=== PATIENT | female | born 1940 | race Caucasian/White ===

== ENCOUNTER → 2016-06-15 | Outpatient (CLI) | payer OTHER, BC ==
[~2016-06-15] MED LIST: ALBUTEROL2.5 MG/31 INH; ALLEGRA ALLERG180 MG PO; ALLEGRA180 MG PO; ARICEPT 5 MG TAB5 MG PO; ATIVAN0.5 MG PO; AUGMENTIN 875875 MG PO; AZITHROMYCIN 2250 MG PO; BACTRIM DS TAB1 EACH PO; CEFDINIR PO; CLONAZEPAM PO; COLACE 100 MG100 MG PO; DARVOCET-N 1001 EAC1 PO; DOXYCYCLINE 10100 MG PO; ESCITALOPRAM OX20 MG PO; FLONASE 0.05%50 MCG NASAL; FLONASE NS; HYDROCODON-ACE1 EAC7 PO; HYDROCODON-ACE1 EACH; KLOR-CON M2020 MEQ PO; LEXAPRO 10 MG T10 M1 PO; MEDROLDOSEPACK PO; MIRALAX17 GM PO; MUCINEX TA600 MG/TA2 PO; PREDNISONE 10 M10 M1 PO; PREDNISONE 20 M20 MG PO; PREDNISONE 5 MG5 MG PO; PROAIR HFA8.5 GM IH; PROAIR HFA8.5 GM INH; PROZAC 10 MG CA10 MG PO; PROZAC 20 MG20 M1 PO; PROZAC10 MG PO; QVAR8.7 G1 IH; QVAR8.7 G1 INH; SENNA PO; SINGULAIR 10 MG10 M1 PO; SINGULAIR 10 MG10 MG PO; SYMBICORT160 MCG/4. INH; VENTOLIN HFA 1818 GM INH; VERAMYST10 GM NASAL; VERAMYST10 GM NS; VITAMIN D-32000 UNIT PO; VITAMIN D1000 UNI1 PO; ZOFRAN ODT4 MG PO; [UNRECOGNIZED DRUG - OTHER] PO
== END ==
LOC: RAD 15:26
DX: J45.909 Unspecified asthma, uncomplicated (principal); R06.02 Shortness of breath

== ENCOUNTER 2016-07-07 21:16 | Emergency (ER) | payer OTHER, BC ==
[~2016-07-07] VITALS: Ht 160 cm; Wt 70.3 kg
--- NOTE | ~2016-07-07 | EKG ---
[address] [address] ELECTROCARDIOGRAM REPORT Name: FERNANDO CURRY Room #: DEP [facility] HAYWARDTrae#: [id number] Admission: 07/07/16 Attend Phys: Discharge: 07/08/16 Date of : 40 Report #: [id number] THIS REPORT FOR: //name// [facility] ED Test Date: 2016-07-07 Test Time: 23:28:22 Pat Name: FERNANDO CURRY Department: Room: Gender: F Technical Sales Specialist: ELVIN : 1940 Requested By: Christa Obrien Order Number: [id number] MD: Yunior Richey Measurements Intervals [place] Rate: 70 P: 32 MN: 155 QRS: -17 QRSD: 93 T: 26 QT: 408 QTc: 441 Interpretive Statements Sinus rhythm Borderline left axis deviation Compared to ECG 06/15/2016 23:29:27 No significant changes Electronically Signed On 07-08-2016 22:32:26 CDT by Yunior Richey [email or web address] <ELECTRONICALLY SIGNED> By: Yunior Richey MD 07/08/162231 27 27 Yunior Richey MD /[facility]
--- NOTE | ~2016-07-07 | EKG ---
[address] [address] ELECTROCARDIOGRAM REPORT Name: FERNANDO CURRY [facility] [id number] Admission: 07/07/16 Attend Phys: Discharge: 07/08/16 Date of : 40 Report #: [id number] THIS REPORT FOR: //name// [facility] ED Test Date: 2016-07-07 Test Time: 21:25:11 Pat Name: FERNANDO CURRY Department: Room: Gender: F Public Health Engineer: lucas mendes : 1940 Requested By: Christa Obrien Order Number: [id number] MD: Yunior Richey Measurements Intervals [place] Rate: 75 P: 48 MS: 145 QRS: -29 QRSD: 92 T: 44 QT: 412 QTc: 461 Interpretive Statements Sinus rhythm Borderline left axis deviation Abnormal R-wave progression, late transition Baseline wander in lead(s) V5 Compared to ECG 06/15/2016 23:29:27 No significant changes Electronically Signed On 07-08-2016 22:29:26 CDT by Yunior Richey [email or web address] <ELECTRONICALLY SIGNED> By: Yunior Richey MD 07/08/16 2229 24 24 Yunior Richey MD /EPI
[2016-07-07] MEDS ORDERED: FLONASE 0.05%50 MCG NASAL (21:34)
[2016-07-07] MEDS ORDERED: VITAMIN D31000 UNI2 PO (21:34)
[2016-07-07] MEDS ORDERED: LIPITOR10 MG PO (21:34)
[2016-07-07 21:36] LABS: ABSOLUTE NEUTROPHILS 3.9 thou/uL (1.4-8.2); EOSINOPHILS 9.5 % (0.0-3.0); HEMATOCRIT 38.3 % (37.0-47.0); HEMOGLOBIN 13.2 gm/dL (12.0-15.0); LYMPHOCYTES 20.2 % (24.0-44.0); MCH 31.5 pg (26.0-34.0); MCHC 34.4 g/dL (28.0-37.0); MCV 91.8 fL (80.0-100.0); MONOCYTES 9.5 % (1.0-8.0); PLATELET COUNT 202 thou/uL (150-400); POLYS 59.8 % (36.0-66.0); RBC 4.17 mil/uL (4.20-5.00); RDW 13.9 % (10.5-14.5); WBC 6.6 thou/uL (4.0-11.0)
[2016-07-07] MEDS ORDERED: [UNRECOGNIZED DRUG - OTHER] INH (21:36)
[2016-07-07 21:38] LABS: MANUAL DIFF NO
[2016-07-07 21:45] LABS: ANION GAP 7 mmol/L (7-16); BUN 25 mg/dL (7-18); CALCIUM 9.6 mg/dL (8.5-10.1); CHLORIDE 103 mmol/L (98-107); CO2 29 mmol/L (21-32); GLUCOSE 102 mg/dL (74-106); POTASSIUM 4.1 mmol/L (3.5-5.1); SODIUM 139 mmol/L (136-145)
[2016-07-07 21:53] LABS: TROPONIN-I < 0.04 ng/mL (<0.04-0.07)
[2016-07-08 00:34] VITALS: BP 122/56
== END 2016-07-08 00:40 | disposition home or self-care (01) ==
LOC: ER 21:16
PROVIDERS: Emergency Medicine
DX: R07.89 Other chest pain (principal); F41.9 Anxiety disorder, unspecified; Z90.89 Acquired absence of other organs; Z90.49 Acquired absence of other specified parts of digestive tract; Z85.3 Personal history of malignant neoplasm of breast; Z88.6 Allergy status to analgesic agent; Z88.1 Allergy status to other antibiotic agents; Z88.8 Allergy status to other drugs, medicaments and biological substances; Z91.041 Radiographic dye allergy status

== ENCOUNTER 2016-07-31 20:20 | Inpatient (IN) | payer OTHER, BC ==
[~2016-07-31] VITALS: Ht 160 cm; Wt 69.4 kg
--- NOTE | ~2016-07-31 | EKG ---
[place] [address] Patient Conversation [facility] [place] [address] ELECTROCARDIOGRAM REPORT Name: FERNANDO CURRY MONO Room #: 311-P ADM IN M.R.#: [id number] Admission: 07/31/16 Attend Phys: Alicja Benitez Discharge: Date of : 40 Report #: [id number] THIS REPORT FOR: //name// [facility] ED Test Date: 2016-07-31 Test Time: 20:29:27 Pat Name: FERNANDO CURRY Department: Room: 311 Gender: F Electrical Controls Engineer: JENNIFER : 1940 Requested By: Christa Obrien Order Number: [id number] MD: Napoleon Aguirre Measurements Intervals [place] Rate: 59 P: 43 SC: 151 QRS: -11 QRSD: 92 T: 38 QT: 424 QTc: 420 Interpretive Statements Sinus rhythm Low voltage, precordial leads Compared to ECG 07/07/2016 23:28:22 No significant change was found Electronically Signed On 08-01-2016 7:56:03 CDT by Napoleon Aguirre [email or web address] <ELECTRONICALLY SIGNED> By: Napoleon Aguirre MD, [facility] 08/01/16 0756 28 28 Napoleon Aguirre MD, [facility] /EPI
[~2016-07-31 20:20] MED LIST changes: +LIPITOR10 MG PO; +VITAMIN D31000 UNI2 PO; +[UNRECOGNIZED DRUG - OTHER] INH
[2016-07-31 20:25] VITALS: BP 137/62
[2016-07-31] MEDS ORDERED: VENTOLIN HFA 1818 GM INH (20:58)
[2016-07-31 21:51] LABS: ABSOLUTE NEUTROPHILS 4.8 thou/uL (1.4-8.2); BASOPHILS 0.7 % (0.0-2.0); EOSINOPHILS 12.9 % (0.0-3.0); HEMATOCRIT 35.8 % (37.0-47.0); HEMOGLOBIN 12.2 gm/dL (12.0-15.0); MCH 31.6 pg (26.0-34.0); MCHC 34.2 g/dL (28.0-37.0); MCV 92.4 fL (80.0-100.0); MONOCYTES 8.5 % (1.0-8.0); PLATELET COUNT 181 thou/uL (150-400); POLYS 65.9 % (36.0-66.0); RBC 3.87 mil/uL (4.20-5.00); RDW 13.5 % (10.5-14.5); WBC 7.3 thou/uL (4.0-11.0)
[2016-07-31 21:54] LABS: MANUAL DIFF NO
[2016-07-31 22:04] LABS: ANION GAP 8 mmol/L (7-16); BUN 22 mg/dL (7-18); CALCIUM 9.6 mg/dL (8.5-10.1); CHLORIDE 103 mmol/L (98-107); CO2 29 mmol/L (21-32); GLUCOSE 140 mg/dL (74-106); POTASSIUM 4.2 mmol/L (3.5-5.1); SODIUM 140 mmol/L (136-145)
[2016-07-31 22:07] LABS: TROPONIN-I < 0.04 ng/mL (<0.04-0.07)
[2016-07-31 22:54] LABS: ALBUMIN 3.7 g/dL (3.4-5.0); ALKALINE PHOSPHATASE 80 U/L (46-116); DIRECT BILIRUBIN < 0.1 mg/dL (<0.1-0.3); SGOT 60 U/L (15-37); SGPT 40 U/L (30-65); TOTAL BILIRUBIN 0.2 mg/dL (<0.1-1.0); TOTAL PROTEIN 6.4 g/dL (6.4-8.2)
[2016-08-01 01:24] VITALS: BP 111/55
[2016-08-01 02:00] VITALS: BP 144/69
[2016-08-01 05:13] VITALS: BP 111/59
[2016-08-01 07:34] LABS: TRIGLYCERIDE 64 mg/dL (<150)
[2016-08-01 08:03] VITALS: BP 121/47
[2016-08-01 10:45] LABS: CHOLESTEROL 188 mg/dL (<200); HDL CHOLESTEROL 67 mg/dL (>40); LDL CHOLESTEROL 109 mg/dL (<100); TC:HDL 2.8 Ratio (Not establshd); TRIGLYCERIDE 62 mg/dL (<150); VLDL 12 mg/dL (<40)
[2016-08-01 17:00] VITALS: BP 124/62
[2016-08-01 19:29] VITALS: BP 115/60
[2016-08-01 23:15] LABS: MAGNESIUM 2.1 mg/dL (1.8-2.4)
[2016-08-02 04:54] VITALS: BP 117/58
[2016-08-02 06:39] LABS: HEMATOCRIT 37.4 % (37.0-47.0); HEMOGLOBIN 12.7 gm/dL (12.0-15.0); MCH 31.7 pg (26.0-34.0); MCHC 33.8 g/dL (28.0-37.0); MCV 93.5 fL (80.0-100.0); RDW 13.7 % (10.5-14.5); WBC 5.3 thou/uL (4.0-11.0)
[2016-08-02 06:59] LABS: CALCIUM 8.1 mg/dL (8.5-10.1); CREATININE 0.9 mg/dL (0.6-1.0); POTASSIUM 4.4 mmol/L (3.5-5.1); TOTAL BILIRUBIN 0.5 mg/dL (<0.1-1.0); TOTAL PROTEIN 5.4 g/dL (6.4-8.2)
[2016-08-02 08:50] VITALS: BP 119/46
[2016-08-02] MEDS ORDERED: ALLEGRA-D 12 H1 EAC1 PO (11:42)
[2016-08-02 12:44] VITALS: BP 105/35
[2016-08-02 16:27] VITALS: BP 111/52
[2016-08-02 20:00] VITALS: BP 110/54
[2016-08-03 04:00] VITALS: BP 118/62
[2016-08-03 06:38] LABS: ALBUMIN 3.2 g/dL (3.4-5.0); CALCIUM 8.7 mg/dL (8.5-10.1); CREATININE 0.8 mg/dL (0.6-1.0); MAGNESIUM 1.9 mg/dL (1.8-2.4); POTASSIUM 3.5 mmol/L (3.5-5.1); TOTAL BILIRUBIN 0.4 mg/dL (<0.1-1.0); TOTAL PROTEIN 5.7 g/dL (6.4-8.2)
[2016-08-03 08:33] VITALS: BP 139/63
[2016-08-03 10:05] VITALS: BP 139/63
== END 2016-08-03 15:15 | disposition home or self-care (01) | DRG 439 ==
LOC: ER 20:20 → EROBS 23:29 → 3N 23:29
PROVIDERS: Emergency Medicine; Hospitalist; Nurse Practitioner Acute Care
DX: K85.90 Acute pancreatitis without necrosis or infection, unspecified (principal); E44.1 Mild protein-calorie malnutrition; K86.1 Other chronic pancreatitis; J45.909 Unspecified asthma, uncomplicated; R41.3 Other amnesia; F32.9 Major depressive disorder, single episode, unspecified; F41.9 Anxiety disorder, unspecified; G62.9 Polyneuropathy, unspecified; L29.9 Pruritus, unspecified; K57.90 Diverticulosis of intestine, part unspecified, without perforation or abscess without bleeding; Z88.6 Allergy status to analgesic agent; Z88.1 Allergy status to other antibiotic agents; Z79.899 Other long term (current) drug therapy; Z91.041 Radiographic dye allergy status; Z88.2 Allergy status to sulfonamides; Z85.3 Personal history of malignant neoplasm of breast; Z90.49 Acquired absence of other specified parts of digestive tract; Z68.27 Body mass index [BMI] 27.0-27.9, adult; Z92.21 Personal history of antineoplastic chemotherapy; Z92.3 Personal history of irradiation; Z80.1 Family history of malignant neoplasm of trachea, bronchus and lung; Z87.01 Personal history of pneumonia (recurrent)
CPT/HCPCS: 10096

== ENCOUNTER 2016-08-14 07:10 | Emergency (ER) | payer OTHER, BC ==
[~2016-08-14] VITALS: Ht 160 cm; Wt 70.3 kg
--- NOTE | ~2016-08-14 | EKG ---
[address] [address] ELECTROCARDIOGRAM REPORT Name: FERNANDO CURRY Room #: [facility]Tom[facility] [id number] Admission: 08/14/16 Attend Phys: Discharge: Date of : 40 Report #: [id number] THIS REPORT FOR: //name// [facility] ED Test Date: 2016-08-14 Test Time: 08:35:54 Pat Name: FERNANDO CURRY Department: Room: Gender: F Toll Test Worker: ANDERS : 1940 Requested By: Victoriano Latham Order Number: [id number] MD: Napoleon Aguirre Measurements Intervals [place] Rate: 61 P: 26 NC: 151 QRS: -3 QRSD: 96 T: 24 QT: 449 QTc: 453 Interpretive Statements Sinus rhythm Atrial premature complex Compared to ECG 07/31/2016 20:29:27 Atrial premature complex(es) now present Electronically Signed On 08-14-2016 8:59:55 CDT by Napoleon Aguirre [email or web address] <ELECTRONICALLY SIGNED> By: Napoleon Aguirre MD, [facility] 08/14/16 0859 4 Napoleon Aguirre MD, [facility] /EPI
[~2016-08-14 07:10] MED LIST changes: +ALLEGRA-D 12 H1 EAC1 PO
[2016-08-14 08:00] LABS: HEMATOCRIT 38.4 % (37.0-47.0); HEMOGLOBIN 12.9 gm/dL (12.0-15.0); MCH 31.5 pg (26.0-34.0); MCHC 33.6 g/dL (28.0-37.0); MCV 93.7 fL (80.0-100.0); PLATELET COUNT 206 thou/uL (150-400); RBC 4.09 mil/uL (4.20-5.00); RDW 13.4 % (10.5-14.5); WBC 6.2 thou/uL (4.0-11.0)
[2016-08-14 08:10] LABS: ANION GAP 5 mmol/L (7-16); BUN 14 mg/dL (7-18); CALCIUM 9.5 mg/dL (8.5-10.1); CHLORIDE 107 mmol/L (98-107); CO2 27 mmol/L (21-32); CREATININE 0.8 mg/dL (0.6-1.0); GLUCOSE 96 mg/dL (74-106); POTASSIUM 4.1 mmol/L (3.5-5.1); SODIUM 139 mmol/L (136-145)
[2016-08-14 08:11] LABS: MANUAL DIFF YES
[2016-08-14 08:17] LABS: ALBUMIN 3.7 g/dL (3.4-5.0); ALKALINE PHOSPHATASE 84 U/L (46-116); SGOT 24 U/L (15-37); SGPT 32 U/L (30-65); TOTAL BILIRUBIN 0.2 mg/dL (<0.1-1.0); TOTAL PROTEIN 6.8 g/dL (6.4-8.2); TROPONIN-I < 0.04 ng/mL (<0.04-0.07)
[2016-08-14 09:36] LABS: ABSOLUTE NEUTROPHILS 3.2 thou/uL (1.4-8.2); ANISOCYTOSIS 1+; METAMYELOCYTES 1 %; OVALOCYTES FEW; TOTAL CELL COUNT 100
[2016-08-14] MEDS ORDERED: MUCINEX D ER 61 EACH PO (10:04)
[2016-08-14 10:16] VITALS: BP 103/55
== END 2016-08-14 10:17 | disposition home or self-care (01) ==
LOC: ER 07:10
PROVIDERS: Emergency Medicine
DX: J06.9 Acute upper respiratory infection, unspecified (principal); F32.9 Major depressive disorder, single episode, unspecified; Z85.3 Personal history of malignant neoplasm of breast; Z92.21 Personal history of antineoplastic chemotherapy; Z92.3 Personal history of irradiation; Z88.6 Allergy status to analgesic agent; Z88.1 Allergy status to other antibiotic agents; Z91.041 Radiographic dye allergy status

== ENCOUNTER → 2016-09-27 | Outpatient (CLI) | payer OTHER, BC ==
[~2016-09-27] MED LIST changes: +MUCINEX D ER 61 EACH PO
== END ==
LOC: RAD 09:45
DX: K83.1 Obstruction of bile duct (principal)

== ENCOUNTER 2016-11-11 08:13 | Emergency (ER) | payer OTHER, BC ==
[~2016-11-11] VITALS: Ht 160 cm; Wt 71.7 kg
--- NOTE | ~2016-11-11 | EKG ---
[place] [address] [facility] [address] [place] [address] ELECTROCARDIOGRAM REPORT Name: FERNANDO CURRY Room #: REG [facility] ANNISTONTomás#: [id number] Admission: 11/11/16 Attend Phys: Discharge: Date of : 40 Report #: [id number] THIS REPORT FOR: //name// [facility] ED Test Date: 2016-11-11 Test Time: 08:33:29 Pat Name: FERNANDO CURRY Department: Room: Gender: F Cable Armorer: [facility] : 1940 Requested By: Chon Garrett Order Number: [id number] MD: Parvez Ley Measurements Intervals [place] Rate: 64 P: 30 [place]: 151 QRS: -11 QRSD: 100 T: 20 QT: 434 QTc: 448 Interpretive Statements Sinus rhythm Low voltage, precordial leads Compared to ECG 08/14/2016 08:35:54 Low QRS voltage now present Atrial premature complex(es) no longer present Electronically Signed On 11-11-2016 10:58:40 CDT by Parvez Ley [email or web address] <ELECTRONICALLY SIGNED> By: Parvez Ley MD 11/11/16 1058 832 2 Parvez Ley MD /[facility]
[2016-11-11 08:48] LABS: HEMATOCRIT 39.8 % (37.0-47.0); HEMOGLOBIN 13.8 gm/dL (12.0-15.0); MCH 32.1 pg (26.0-34.0); MCHC 34.7 g/dL (28.0-37.0); MCV 92.6 fL (80.0-100.0); RBC 4.3 mil/uL (4.20-5.00); RDW 13.7 % (10.5-14.5); WBC 5.2 thou/uL (4.0-11.0)
[2016-11-11 09:01] LABS: ANION GAP 6 mmol/L (7-16); BUN 16 mg/dL (7-18); CALCIUM 9.6 mg/dL (8.5-10.1); CHLORIDE 104 mmol/L (98-107); CO2 30 mmol/L (21-32); CREATININE 0.9 mg/dL (0.6-1.0); GLUCOSE 103 mg/dL (74-106); POTASSIUM 4.1 mmol/L (3.5-5.1); SODIUM 140 mmol/L (136-145)
[2016-11-11 09:09] LABS: ALBUMIN 3.9 g/dL (3.4-5.0); ALKALINE PHOSPHATASE 106 U/L (46-116); MAGNESIUM 1.9 mg/dL (1.8-2.4); SGOT 24 U/L (15-37); SGPT 31 U/L (30-65); TOTAL BILIRUBIN 0.4 mg/dL (<0.1-1.0); TOTAL PROTEIN 7.3 g/dL (6.4-8.2); TROPONIN-I < 0.04 ng/mL (<0.04-0.07)
[2016-11-11 09:30] VITALS: BP 146/84
[2016-11-11 09:59] LABS: URINE BILIRUBIN NEGATIVE (Negative); URINE BLOOD TRACE (Negative); URINE COLOR YELLOW; URINE GLUCOSE-RANDOM* NEGATIVE (Negative); URINE KETONES NEGATIVE (Negative); URINE LEUKOCYTES-REFLEX NEGATIVE (Negative); URINE PROTEIN (DIPSTICK) NEGATIVE (Negative); URINE UROBILINOGEN 0.2 E.U./dl (0.2-1.0)
[2016-11-11] MEDS ORDERED: AUGMENTIN 875-1 EACH PO (10:23)
== END 2016-11-11 16:26 | disposition home or self-care (01) ==
LOC: ER 08:13
PROVIDERS: Emergency Medicine
DX: J32.9 Chronic sinusitis, unspecified (principal); R42 Dizziness and giddiness; J45.909 Unspecified asthma, uncomplicated; Z88.2 Allergy status to sulfonamides; Z88.1 Allergy status to other antibiotic agents; Z88.8 Allergy status to other drugs, medicaments and biological substances

== ENCOUNTER 2016-11-26 02:38 | Emergency (ER) | payer OTHER, BC ==
[~2016-11-26] VITALS: Ht 160 cm; Wt 69.0 kg
--- NOTE | ~2016-11-26 | EKG ---
[address] [place] [address] ELECTROCARDIOGRAM REPORT Name: FERNANDO CURRY Room #: [facility] [id number] Admission: 11/26/16 Attend Phys: Discharge: 11/26/16 Date of : 40 Report #: [id number] THIS REPORT FOR: //name// [facility] ED Test Date: 2016-11-26 Test Time: 02:51:06 Pat Name: FERNANDO PATRICIO Department: Room: Gender: F Renewal Specialist: MELLY : 1940 Requested By: Aneesh Beckman Order Number: [id number] MD: Napoleon Aguirre Measurements Intervals [place] Rate: 60 P: 35 PA: 146 QRS: -9 QRSD: 93 T: 14 QT: 445 QTc: 445 Interpretive Statements Sinus rhythm No significant abnormality Compared to ECG 11/11/2016 08:33:29 No significant changes Electronically Signed On 11-26-2016 8:52:09 CDT by Napoleon Aguirre [email or web address] <ELECTRONICALLY SIGNED> By: Napoleon Aguirre MD, [facility] 11/26/16 0852 0251 0 Napoleon Aguirre MD, [facility] /EPI
[~2016-11-26 02:38] MED LIST changes: +AUGMENTIN 875-1 EACH PO
[2016-11-26 03:12] LABS: ABSOLUTE NEUTROPHILS 9.9 thou/uL (1.4-8.2); BASOPHILS 0.5 % (0.0-2.0); EOSINOPHILS 1.1 % (0.0-3.0); HEMATOCRIT 39.4 % (37.0-47.0); HEMOGLOBIN 13.1 gm/dL (12.0-15.0); LYMPHOCYTES 14.8 % (24.0-44.0); MCH 30.5 pg (26.0-34.0); MCHC 33.1 g/dL (28.0-37.0); MCV 92.1 fL (80.0-100.0); MONOCYTES 8.9 % (1.0-8.0); PLATELET COUNT 223 thou/uL (150-400); POLYS 74.7 % (36.0-66.0); RBC 4.28 mil/uL (4.20-5.00); RDW 14.3 % (10.5-14.5); WBC 13.3 thou/uL (4.0-11.0)
[2016-11-26 03:13] LABS: ANION GAP 9 mmol/L (7-16); BUN 33 mg/dL (7-18); CALCIUM 9.4 mg/dL (8.5-10.1); CHLORIDE 101 mmol/L (98-107); CO2 26 mmol/L (21-32); CREATININE 1.2 mg/dL (0.6-1.0); GLUCOSE 114 mg/dL (74-106); POTASSIUM 4.2 mmol/L (3.5-5.1); SODIUM 136 mmol/L (136-145)
[2016-11-26 03:15] LABS: MANUAL DIFF NO
[2016-11-26 03:22] LABS: ALBUMIN 4.1 g/dL (3.4-5.0); ALKALINE PHOSPHATASE 118 U/L (46-116); MAGNESIUM 2.2 mg/dL (1.8-2.4); SGOT 22 U/L (15-37); SGPT 36 U/L (30-65); TOTAL BILIRUBIN 0.3 mg/dL (<0.1-1.0); TOTAL PROTEIN 7.1 g/dL (6.4-8.2); TROPONIN-I < 0.04 ng/mL (<0.04-0.07)
[2016-11-26] MEDS ORDERED: ATIVAN1 MG PO (03:43)
[2016-11-26 03:55] VITALS: BP 131/68
== END 2016-11-26 03:57 | disposition home or self-care (01) ==
LOC: ER 02:38
PROVIDERS: Emergency Medicine
DX: F41.9 Anxiety disorder, unspecified (principal); R07.9 Chest pain, unspecified; F13.230 Sedative, hypnotic or anxiolytic dependence with withdrawal, uncomplicated; N18.9 Chronic kidney disease, unspecified; J45.909 Unspecified asthma, uncomplicated; F32.9 Major depressive disorder, single episode, unspecified; Z85.3 Personal history of malignant neoplasm of breast; Z88.6 Allergy status to analgesic agent; Z88.1 Allergy status to other antibiotic agents; Z91.041 Radiographic dye allergy status

== ENCOUNTER 2017-02-27 23:15 | Inpatient (IN) | payer OTHER, BC ==
[~2017-02-27] VITALS: Ht 160 cm; Wt 73.9 kg
[~2017-02-27 23:15] MED LIST changes: +ATIVAN1 MG PO
[2017-02-27 23:43] VITALS: BP 134/73
[2017-02-27 23:44] LABS: ABSOLUTE NEUTROPHILS 5.5 thou/uL (1.4-8.2); BASOPHILS 0.8 % (0.0-2.0); EOSINOPHILS 3.3 % (0.0-3.0); HEMATOCRIT 42.3 % (37.0-47.0); HEMOGLOBIN 14.3 gm/dL (12.0-15.0); LYMPHOCYTES 21.8 % (24.0-44.0); MCH 31.8 pg (26.0-34.0); MCHC 33.7 g/dL (28.0-37.0); MCV 94.2 fL (80.0-100.0); PLATELET COUNT 250 thou/uL (150-400); POLYS 63.1 % (36.0-66.0); RBC 4.49 mil/uL (4.20-5.00); RDW 13.5 % (10.5-14.5); WBC 8.7 thou/uL (4.0-11.0)
[2017-02-27 23:48] LABS: ANION GAP 5 mmol/L (7-16); BUN 36 mg/dL (7-18); CALCIUM 9.7 mg/dL (8.5-10.1); CHLORIDE 102 mmol/L (98-107); CO2 30 mmol/L (21-32); CREATININE 1.3 mg/dL (0.6-1.0); GLUCOSE 100 mg/dL (74-106); POTASSIUM 4.3 mmol/L (3.5-5.1); SODIUM 137 mmol/L (136-145)
[2017-02-27] MEDS ORDERED: LEXAPRO 10 MG T10 M1 PO ×2 (23:48→23:51)
[2017-02-27] MEDS ORDERED: POTASSIUM20 PO (23:48)
[2017-02-27 23:54] LABS: ALBUMIN 3.8 g/dL (3.4-5.0); DIRECT BILIRUBIN < 0.1 mg/dL (<0.1-0.3); LIPASE 836 U/L (73-393); SGOT 22 U/L (15-37); SGPT 41 U/L (30-65); TOTAL BILIRUBIN 0.4 mg/dL (<0.1-1.0)
[2017-02-28] VITALS (7 sets, daily range): BP systolic 112–148; BP diastolic 50–73
[2017-02-28] MEDS ORDERED: PHENERGAN 25 MG25 M1 PO (00:41)
[2017-02-28] MEDS ORDERED: ZOFRAN ODT4 MG PO (00:41)
[2017-06-24] MEDS ORDERED: ARICEPT10 M1 PO (12:02)
[2017-06-24] MEDS ORDERED: LEXAPRO20 MG PO (12:03)
[2017-11-09] MEDS ORDERED: AUGMENTIN 875-1 EACH PO (06:57)
[2017-11-17] MEDS ORDERED: LEXAPRO 10 MG T10 M1 PO (00:58)
== END 2017-02-28 14:28 | disposition home or self-care (01) | DRG 440 ==
LOC: ER 23:15 → 4S 02-28 01:29 → EROBS 02-28 01:29 → 4S 02-28 01:52
PROVIDERS: Emergency Medicine
DX: K85.90 Acute pancreatitis without necrosis or infection, unspecified (principal); J45.909 Unspecified asthma, uncomplicated; F32.9 Major depressive disorder, single episode, unspecified; F41.9 Anxiety disorder, unspecified; R20.2 Paresthesia of skin; T42.6X5A Adverse effect of other antiepileptic and sedative-hypnotic drugs, initial encounter; A08.4 Viral intestinal infection, unspecified; Z79.899 Other long term (current) drug therapy; Z88.6 Allergy status to analgesic agent; Z88.1 Allergy status to other antibiotic agents; Z88.2 Allergy status to sulfonamides; Z88.8 Allergy status to other drugs, medicaments and biological substances; Z85.3 Personal history of malignant neoplasm of breast; Z90.49 Acquired absence of other specified parts of digestive tract; Z92.21 Personal history of antineoplastic chemotherapy; Z92.3 Personal history of irradiation
CPT/HCPCS: 10100

== ENCOUNTER 2017-03-18 05:01 | Emergency (ER) | payer OTHER, BC ==
[~2017-03-18] VITALS: Ht 160 cm; Wt 71.7 kg
--- NOTE | ~2017-03-18 | EKG ---
[place] [address] [facility] [place] [address] ELECTROCARDIOGRAM REPORT Name: FERNANDO CURRY Room #: REG [facility]#: [id number] Admission: 03/18/17 Attend Phys: Discharge: Date of : 40 Report #: [id number] THIS REPORT FOR: //name// [facility] ED Test Date: 2017-03-18 Test Time: 05:20:58 Pat Name: FERNANDO CURRY Department: Room: Gender: F Firmware Architect: MY : 1940 Requested By: Victoriano Latham Order Number: [id number] MD: Yunior Richey Measurements Intervals [place] Rate: 61 P: 19 MD: 148 QRS: -16 QRSD: 95 T: 25 QT: 448 QTc: 452 Interpretive Statements Sinus rhythm Borderline left axis deviation Low voltage, precordial leads Compared to ECG 11/26/2016 02:51:06 Low QRS voltage now present Electronically Signed On 03-18-2017 8:10:10 TWIST PACKER by Yunior Richey [email or web address] <ELECTRONICALLY SIGNED> By: Yunior Richey MD 03/18/17 0810 Yunior Richey MD /[facility]
[~2017-03-18 05:01] MED LIST changes: +PHENERGAN 25 MG25 M1 PO; +POTASSIUM20 PO
[2017-03-18 05:42] LABS: ABSOLUTE NEUTROPHILS 2.7 thou/uL (1.4-8.2); HEMATOCRIT 39.5 % (37.0-47.0); HEMOGLOBIN 13.3 gm/dL (12.0-15.0); MCH 31.5 pg (26.0-34.0); MCHC 33.5 g/dL (28.0-37.0); MONOCYTES 10.9 % (1.0-8.0); PLATELET COUNT 257 thou/uL (150-400); POLYS 54.1 % (36.0-66.0); RDW 12.6 % (10.5-14.5)
[2017-03-18 05:50] LABS: ANION GAP 9 mmol/L (7-16); BUN 20 mg/dL (7-18); CHLORIDE 106 mmol/L (98-107); CO2 27 mmol/L (21-32); CREATININE 0.9 mg/dL (0.6-1.0); GLUCOSE 102 mg/dL (74-106); POTASSIUM 3.6 mmol/L (3.5-5.1); SODIUM 142 mmol/L (136-145)
[2017-03-18 05:59] LABS: TROPONIN-I < 0.04 ng/mL (<0.06)
[2017-03-18] MEDS ORDERED: DOXYCYCLINE 10100 MG PO (09:42)
[2017-03-18 09:53] VITALS: BP 116/60
[2017-06-24] MEDS ORDERED: ARICEPT10 M1 PO (12:02)
[2017-06-24] MEDS ORDERED: LEXAPRO20 MG PO (12:03)
[2017-11-09] MEDS ORDERED: AUGMENTIN 875-1 EACH PO (06:57)
[2017-11-17] MEDS ORDERED: LEXAPRO 10 MG T10 M1 PO (00:58)
== END 2017-03-18 09:54 | disposition still patient (30) ==
LOC: ER 05:01
PROVIDERS: Emergency Medicine
DX: J98.8 Other specified respiratory disorders (principal); R04.2 Hemoptysis; J45.909 Unspecified asthma, uncomplicated; F32.9 Major depressive disorder, single episode, unspecified; F41.9 Anxiety disorder, unspecified; Z90.49 Acquired absence of other specified parts of digestive tract; Z85.3 Personal history of malignant neoplasm of breast; Z88.6 Allergy status to analgesic agent; Z88.2 Allergy status to sulfonamides; Z88.1 Allergy status to other antibiotic agents; Z91.041 Radiographic dye allergy status

== ENCOUNTER → 2017-05-27 | Outpatient (CLI) | payer OTHER, BC ==
[~2017-05-27] MED LIST changes: +ARICEPT10 M1 PO; +ESCITALOPRAM OX10 MG PO; +KEFLEX500 M1 PO; +LEXAPRO20 MG PO; +PROVENTIL HFA6.7 G1 INH; +SYMBICORT80 MCG/4.1 INH; +TRAMADOL 50 MG50 MG PO; +ZPAK PO
== END ==
LOC: CAT 10:25
DX: J33.9 Nasal polyp, unspecified (principal)

== ENCOUNTER → 2017-05-31 | Outpatient (CLI) | payer OTHER, BC ==
[~2017-05-31] MED LIST changes: -ARICEPT10 M1 PO; -ESCITALOPRAM OX10 MG PO; -KEFLEX500 M1 PO; -LEXAPRO20 MG PO; -PROVENTIL HFA6.7 G1 INH; -SYMBICORT80 MCG/4.1 INH; -TRAMADOL 50 MG50 MG PO; -ZPAK PO
== END ==
LOC: CAT 08:58
DX: J32.9 Chronic sinusitis, unspecified (principal); J45.909 Unspecified asthma, uncomplicated; M50.30 Other cervical disc degeneration, unspecified cervical region

== ENCOUNTER 2017-06-11 00:42 | Emergency (ER) | payer OTHER, BC ==
[~2017-06-11] VITALS: Ht 160 cm; Wt 77.1 kg
[2017-06-11] MEDS ORDERED: AUGMENTIN 875-1 EACH PO (02:03)
[2017-06-11] MEDS ORDERED: PREDNISONE 20 M20 MG PO (02:03)
[2017-06-11 02:35] VITALS: BP 131/51
== END 2017-06-11 02:51 | disposition home or self-care (01) ==
LOC: ER 00:42
DX: J32.9 Chronic sinusitis, unspecified (principal); J45.909 Unspecified asthma, uncomplicated; Z90.49 Acquired absence of other specified parts of digestive tract; Z88.2 Allergy status to sulfonamides; Z88.1 Allergy status to other antibiotic agents; Z88.6 Allergy status to analgesic agent

== ENCOUNTER 2017-06-27 06:52 | Emergency (ER) | payer OTHER, BC ==
[~2017-06-27] VITALS: Ht 160 cm; Wt 74.8 kg
--- NOTE | ~2017-06-27 | EKG ---
[place] [address] [facility] [place] [address] ELECTROCARDIOGRAM REPORT Name: FERNANDO CURRY Room #: REG [facility] DOTHANTomás#: [id number] Admission: 06/27/17 Attend Phys: Discharge: Date of : 40 Report #: [id number] THIS REPORT FOR: //name// [facility] ED Test Date: 2017-06-27 Test Time: 07:35:45 Pat Name: FERNANDO CURRY Department: Room: Gender: F Testing Manager: : 1940 Requested By: Simran Naidu Order Number: [id number] MD: Napoleon Aguirre Measurements Intervals [place] Rate: 74 P: -10 [place]: 153 QRS: -18 QRSD: 88 T: 15 QT: 412 QTc: 457 Interpretive Statements Sinus rhythm Abnormal R-wave progression, late transition Baseline wander in lead(s) V4 Compared to ECG 03/18/2017 05:20:58 No significant changes Electronically Signed On 06-27-2017 8:57:44 CDT by Napoleon Aguirre [email or web address] <ELECTRONICALLY SIGNED> By: Napoleon Aguirre MD, [facility] 06/27/17 0857 4 4 Napoleon Aguirre MD, [facility] /EPI
[~2017-06-27 06:52] MED LIST changes: +ARICEPT10 M1 PO; +LEXAPRO20 MG PO
[2017-06-27] MEDS ORDERED: KLOR-CON M2020 MEQ PO (07:03)
[2017-06-27] MEDS ORDERED: ESCITALOPRAM OX10 MG PO (07:03)
[2017-06-27] MEDS ORDERED: ARICEPT 5 MG TAB5 MG PO (07:04)
[2017-06-27 07:51] LABS: ABSOLUTE NEUTROPHILS 3.8 thou/uL (1.4-8.2); BASOPHILS 0.9 % (0.0-2.0); EOSINOPHILS 8.1 % (0.0-3.0); HEMATOCRIT 39.2 % (37.0-47.0); HEMOGLOBIN 13.4 gm/dL (12.0-15.0); LYMPHOCYTES 17.1 % (24.0-44.0); MCH 31.3 pg (26.0-34.0); MCHC 34.2 g/dL (28.0-37.0); MCV 91.5 fL (80.0-100.0); MONOCYTES 11.7 % (1.0-8.0); PLATELET COUNT 180 thou/uL (150-400); POLYS 62.2 % (36.0-66.0); RBC 4.29 mil/uL (4.20-5.00); RDW 13.5 % (10.5-14.5); WBC 6.1 thou/uL (4.0-11.0)
[2017-06-27 07:57] LABS: ANION GAP 9 mmol/L (7-16); BUN 19 mg/dL (7-18); CALCIUM 9.4 mg/dL (8.5-10.1); CHLORIDE 106 mmol/L (98-107); CO2 25 mmol/L (21-32); CREATININE 0.9 mg/dL (0.6-1.0); GLUCOSE 106 mg/dL (74-106); POTASSIUM 3.9 mmol/L (3.5-5.1); SODIUM 140 mmol/L (136-145)
[2017-06-27 08:07] LABS: TROPONIN-I < 0.04 ng/mL (<0.06)
[2017-06-27] MEDS ORDERED: ZPAK PO (09:27)
[2017-06-27] MEDS ORDERED: PREDNISONE 20 M20 MG PO (09:27)
[2017-06-27 09:51] VITALS: BP 133/60
== END 2017-06-27 09:54 | disposition home or self-care (01) ==
LOC: ER 06:52
PROVIDERS: Emergency Medicine
DX: J06.9 Acute upper respiratory infection, unspecified (principal); R20.0 Anesthesia of skin; J45.909 Unspecified asthma, uncomplicated; F32.9 Major depressive disorder, single episode, unspecified; F41.9 Anxiety disorder, unspecified; Z85.3 Personal history of malignant neoplasm of breast; Z90.49 Acquired absence of other specified parts of digestive tract; Z88.1 Allergy status to other antibiotic agents; Z88.2 Allergy status to sulfonamides

== ENCOUNTER → 2017-07-22 | Outpatient (CLI) | payer OTHER, BC ==
[~2017-07-22] MED LIST changes: +ESCITALOPRAM OX10 MG PO; +ZPAK PO
== END ==
LOC: RAD 07:52
DX: N20.0 Calculus of kidney (principal)

== ENCOUNTER → 2017-08-02 | Outpatient (CLI) | payer OTHER, BC ==
--- NOTE | ~2017-08-02 | 2DMMODE ---
[facility] [address] [place] [address] 2 D/M-MODE ECHOCARDIOGRAM Name: FERNANDO CURRY Room #: [facility] [id number] Admission: 08/02/17 Attend Phys: Leonidas Bhandari Discharge: Date of : 40 Date of Service: 08/02/17 1342 Report #: [id number] THIS REPORT FOR: //name// APPROVED REPORT Study performed: 08/02/2017 12:53:48 EXAM: Comprehensive 2D, Doppler, and color-flow Echocardiogram Patient Location: Out-Patient Status: routine BSA: 1.80 HR: 80 bpm BP: 115/72 mmHg Rhythm: NSR/arrhythmia Other Information Study Quality: Adequate Indications Irregular heart beat, hypertension. 2D Dimensions RVDd: 30.27 mm LVEF(%): 54.84 (>50%) IVSd: 8.61 (7-11mm) LVOT Diam: 18.51 (18-24mm) LVDd: 41.11 mm PWd: 9.05 (7-11mm) Ascending Ao: 33.54 (22-36mm) LVDs: 29.55 (25-40mm) Aortic Root: 37.61 mm Cox's LVEF: 54.84 % Volumes Left Atrial Volume (Systole) Single Plane 4CH: 16.85 mL Single Plane 2CH: 46.96 mL LA ESV Index: 20.00 mL/m2 Aortic Valve AoV Peak Dilip.: 1.31 m/s AO Peak Gr.: 6.84 mmHg LVOT Max P.02 mmHg LVOT Max V: 1.00 m/s LOLY Vmax: 2.06 cm2 Mitral Valve E/A Ratio: 0.7 MV Decel. Time: 195.65 ms [facility] [address] [address] 2 D/M-MODE ECHOCARDIOGRAM Name: FERNANDO CURRY MONO Room #: REG [facility] [id number] Admission: 08/02/17 Attend Phys: Leonidas Bhandari Discharge: Date of : 40 Date of Service: 08/02/17 1342 Report #: [id number] MV E Max Dilip.: 0.66 m/s MV A Dilip.: 1.01 m/s MV PHT: 56.74 ms IVRT: 83.04 ms Pulmonary Valve PV Peak Dilip.: 0.86 m/s PV Peak Gr.: 2.94 mmHg Pulmonary Vein P Vein S: 0.57 m/s P Vein A: 0.37 m/s P Vein D: 0.34 m/s P Vein A Dur.: 121.1 msec P Vein S/D Ratio: 1.68 Tricuspid Valve TR Peak Dilip.: 2.27 m/s RAP Estimate: 5.00 mmHg TR Peak Gr.: 20.63 mmHg PA Pressure: 26.00 mmHg Left Ventricle The left ventricle is normal size. There is normal LV segmental wall motion. There is normal left ventricular wall thickness. Left ventricular systolic function is normal. LVEF is 55-60%. Mild diastolic dysfunction is present (impaired relaxation pattern). Right Ventricle The right ventricle is normal size. The right ventricular systolic function is normal. Atria The left atrium size is normal. The right atrium size is normal. Aortic Valve Aortic valve is trileaflet. No aortic regurgitation is present. There is no aortic valvular stenosis. Mitral Valve The mitral valve is normal in structure. Mild mitral regurgitation. Tricuspid Valve The tricuspid valve is normal in structure. Mild to moderate tricuspid regurgitation. Estimated PAP is 25-30mmHg. Pulmonic Valve [address] [address] 2 D/M-MODE ECHOCARDIOGRAM Name: FERNANDO CURRY MONO Room #: REG CL Bo#: [id number] Admission: 08/02/17 Attend Phys: Leonidas Bhandari Discharge: Date of : 40 Date of Service: 08/02/17 1342 Report #: [id number] The pulmonary valve is normal in structure. Trace pulmonic regurgitation. Great Vessels The aortic root measures at the upper limits of normal. The ascending aorta is normal in size. IVC is normal in size and collapses >50% with inspiration. Pericardium There is no pericardial effusion. <Conclusion> The left ventricle is normal size. LVEF is 55-60%. The left atrium size is normal. Aortic valve is trileaflet. The mitral valve is normal in structure. Mild mitral regurgitation. The tricuspid valve is normal in structure. Mild to moderate tricuspid regurgitation. Estimated PAP is 25-30mmHg. The pulmonary valve is normal in structure. Trace pulmonic regurgitation. There is no pericardial effusion. <ELECTRONICALLY SIGNED> By: Leonidas Beverly MD 08/02/17 134 41 41 Leonidas Beverly MD /INF
== END ==
LOC: CV 12:39
DX: I08.1 Rheumatic disorders of both mitral and tricuspid valves (principal); I10 Essential (primary) hypertension; I49.9 Cardiac arrhythmia, unspecified; G45.9 Transient cerebral ischemic attack, unspecified

== ENCOUNTER 2017-08-19 17:52 | Emergency (ER) | payer OTHER, BC ==
[~2017-08-19] VITALS: Ht 160 cm; Wt 74.8 kg
--- NOTE | ~2017-08-19 | EKG ---
[address] [address] ELECTROCARDIOGRAM REPORT Name: FERNANDO CURRY [facility]: [facility] [id number] Admission: 08/19/17 Attend Phys: Discharge: 08/19/17 Date of : 40 Report #: [id number] THIS REPORT FOR: //name// [facility] ED Test Date: 2017-08-19 Test Time: 17:51:59 Pat Name: FERNANDO CURRY Department: Room: Gender: F Front Desk Clerk: LUCÍA : 1940 Requested By: Melissa Romero Order Number: [id number] MD: Yunior Richey Measurements Intervals [place] Rate: 76 P: 54 NV: 153 QRS: -22 QRSD: 92 T: 41 QT: 388 QTc: 437 Interpretive Statements Sinus rhythm Borderline left axis deviation Compared to ECG 06/27/2017 07:35:45 No significant changes Electronically Signed On 08-20-2017 14:29:48 CDT by Yunior Richey [email or web address] <ELECTRONICALLY SIGNED> By: Yunior Richey MD 08/20/17 1429 50 50 Yunior Richey MD /[facility]
[2017-08-19 18:59] LABS: ABSOLUTE NEUTROPHILS 4.1 thou/uL (1.4-8.2); BASOPHILS 1.1 % (0.0-2.0); EOSINOPHILS 11.6 % (0.0-3.0); HEMATOCRIT 41.2 % (37.0-47.0); LYMPHOCYTES 21.1 % (24.0-44.0); MCH 31.7 pg (26.0-34.0); MCHC 33.9 g/dL (28.0-37.0); MCV 93.5 fL (80.0-100.0); MONOCYTES 11.5 % (1.0-8.0); PLATELET COUNT 221 thou/uL (150-400); POLYS 54.7 % (36.0-66.0); RBC 4.41 mil/uL (4.20-5.00); RDW 13.4 % (10.5-14.5); WBC 7.4 thou/uL (4.0-11.0)
[2017-08-19 19:08] LABS: ANION GAP 9 mmol/L (7-16); BUN 23 mg/dL (7-18); CALCIUM 10.8 mg/dL (8.5-10.1); CHLORIDE 104 mmol/L (98-107); CO2 26 mmol/L (21-32); GLUCOSE 99 mg/dL (74-106); POTASSIUM 3.7 mmol/L (3.5-5.1); SODIUM 139 mmol/L (136-145)
[2017-08-19 19:16] LABS: ALBUMIN 4.2 g/dL (3.4-5.0); LIPASE 370 U/L (73-393); MAGNESIUM 2.1 mg/dL (1.8-2.4); SGOT 28 U/L (15-37); SGPT 38 U/L (30-65); TOTAL BILIRUBIN 0.3 mg/dL (<0.1-1.0); TOTAL PROTEIN 7.5 g/dL (6.4-8.2); TROPONIN-I < 0.04 ng/mL (<0.06)
[2017-08-19] MEDS ORDERED: PREDNISONE 20 M20 MG PO (20:38)
[2017-08-19 20:56] VITALS: BP 156/54
== END 2017-08-19 20:57 | disposition home or self-care (01) ==
LOC: ER 17:52
PROVIDERS: Nurse Practitioner Family
DX: J45.901 Unspecified asthma with (acute) exacerbation (principal); F41.9 Anxiety disorder, unspecified; R41.89 Other symptoms and signs involving cognitive functions and awareness; R42 Dizziness and giddiness; Z85.3 Personal history of malignant neoplasm of breast; Z90.49 Acquired absence of other specified parts of digestive tract; Z90.11 Acquired absence of right breast and nipple; Z88.6 Allergy status to analgesic agent; Z88.2 Allergy status to sulfonamides; Z88.1 Allergy status to other antibiotic agents; Z91.041 Radiographic dye allergy status

== ENCOUNTER 2017-09-06 05:31 | Emergency (ER) | payer OTHER, BC ==
[~2017-09-06] VITALS: Ht 160 cm; Wt 77.1 kg
[2017-09-06 05:54] LABS: ABSOLUTE NEUTROPHILS 10.9 thou/uL (1.4-8.2); BASOPHILS 0.6 % (0.0-2.0); EOSINOPHILS 2.2 % (0.0-3.0); HEMATOCRIT 39.1 % (37.0-47.0); HEMOGLOBIN 13.4 gm/dL (12.0-15.0); LYMPHOCYTES 10.2 % (24.0-44.0); MCHC 34.3 g/dL (28.0-37.0); MCV 93.3 fL (80.0-100.0); MONOCYTES 8.1 % (1.0-8.0); PLATELET COUNT 237 thou/uL (150-400); POLYS 78.9 % (36.0-66.0); RBC 4.19 mil/uL (4.20-5.00); RDW 13.4 % (10.5-14.5); WBC 13.9 thou/uL (4.0-11.0)
[2017-09-06 06:01] LABS: CALCIUM 9.6 mg/dL (8.5-10.1); CREATININE 1.2 mg/dL (0.6-1.0); POTASSIUM 4.1 mmol/L (3.5-5.1)
[2017-09-06 07:38] LABS: URINE BILIRUBIN NEGATIVE (Negative); URINE BLOOD 3+ (Negative); URINE COLOR YELLOW; URINE GLUCOSE-RANDOM* NEGATIVE (Negative); URINE KETONES NEGATIVE (Negative); URINE LEUKOCYTES-REFLEX 1+ (Negative); URINE NITRITE-REFLEX NEGATIVE (Negative); URINE PROTEIN (DIPSTICK) 2+ (Negative); URINE SPECIFIC GRAVITY 1.015 (1.005-1.035); URINE UROBILINOGEN 0.2 E.U./dl (0.2-1.0)
[2017-09-06 07:39] LABS: URINE CLARITY HAZY
[2017-09-06 07:58] LABS: CASTS None Seen /LPF (None Seen); CRYSTALS None Seen /LPF (None Seen); SQUAMOUS 0-3 Few /LPF (0-3); URINE RBC >20 Many /HPF (0-2)
[2017-09-06 07:59] LABS: YEAST-REFLEX Present (None Seen)
[2017-09-06] MEDS ORDERED: KEFLEX500 M1 PO (09:49)
[2017-09-06] MEDS ORDERED: TRAMADOL 50 MG50 MG PO (09:49)
[2017-09-06 09:57] VITALS: BP 99/59
== END 2017-09-06 09:57 | disposition home or self-care (01) ==
LOC: ER 05:31
PROVIDERS: Emergency Medicine
DX: N20.1 Calculus of ureter (principal); N39.0 Urinary tract infection, site not specified; J45.909 Unspecified asthma, uncomplicated; F32.9 Major depressive disorder, single episode, unspecified; F41.9 Anxiety disorder, unspecified; Z90.49 Acquired absence of other specified parts of digestive tract; Z85.3 Personal history of malignant neoplasm of breast; Z90.11 Acquired absence of right breast and nipple; Z88.6 Allergy status to analgesic agent; Z88.1 Allergy status to other antibiotic agents; Z91.041 Radiographic dye allergy status; Z88.8 Allergy status to other drugs, medicaments and biological substances; Z88.2 Allergy status to sulfonamides

== ENCOUNTER 2017-10-18 23:01 | Emergency (ER) | payer OTHER, BC ==
[~2017-10-18] VITALS: Ht 160 cm; Wt 77.6 kg
[~2017-10-18 23:01] MED LIST changes: +KEFLEX500 M1 PO; +TRAMADOL 50 MG50 MG PO
[2017-10-18] MEDS ORDERED: LEXAPRO 10 MG T10 M1 PO (23:24)
[2017-10-18] MEDS ORDERED: SYMBICORT80 MCG/4.1 INH (23:33)
[2017-10-18] MEDS ORDERED: ALBUTEROL2.5 MG/31 INH (23:57)
[2017-10-18] MEDS ORDERED: PROVENTIL HFA6.7 G1 INH (23:57)
[2017-10-19 00:53] VITALS: BP 116/78
== END 2017-10-19 00:52 | disposition home or self-care (01) ==
LOC: ER 23:01
DX: F41.9 Anxiety disorder, unspecified (principal); R06.00 Dyspnea, unspecified; J45.909 Unspecified asthma, uncomplicated; F32.9 Major depressive disorder, single episode, unspecified; Z88.6 Allergy status to analgesic agent; Z88.2 Allergy status to sulfonamides; Z88.8 Allergy status to other drugs, medicaments and biological substances; Z88.1 Allergy status to other antibiotic agents; Z91.041 Radiographic dye allergy status; Z85.3 Personal history of malignant neoplasm of breast; Z90.11 Acquired absence of right breast and nipple; Z90.49 Acquired absence of other specified parts of digestive tract

== ENCOUNTER 2017-12-23 18:16 | Emergency (ER) | payer OTHER, BC ==
[~2017-12-23] VITALS: Ht 160 cm; Wt 86.2 kg
--- NOTE | ~2017-12-23 | EKG ---
[address] [address] ELECTROCARDIOGRAM REPORT Name: FERNANDO CURRY [facility] [id number] Admission: 12/23/17 Attend Phys: Discharge: 12/23/17 Date of : 40 Report #: [id number] THIS REPORT FOR: //name// [facility] ED Test Date: 2017-12-23 Test Time: 18:49:58 Pat Name: FERNANDO CURRY Department: Room: Gender: F Surgery Aid: LORI : 1940 Requested By: Eva Krishnan Order Number: [id number] MD: Napoleon Aguirre Measurements Intervals [place] Rate: 68 P: 16 [place]: 150 QRS: -16 QRSD: 89 T: 17 QT: 408 QTc: 434 Interpretive Statements Sinus rhythm Atrial premature complex Baseline wander in lead(s) V2 Compared to ECG 11/17/2017 00:21:49 Atrial premature complex(es) now present Electronically Signed On 12-24-2017 8:04:31 CDT by Napoleon Aguirre [email or web address] <ELECTRONICALLY SIGNED> By: Napoleon Aguirre MD, [facility] 12/24/17 0804 1849 1849 Napoleon Aguirre MD, [facility] /EPI
[~2017-12-23 18:16] MED LIST changes: +PROVENTIL HFA6.7 G1 INH; +SYMBICORT80 MCG/4.1 INH
[2017-12-23 18:58] LABS: HEMOGLOBIN 13.3 gm/dL (12.0-15.0); MCH 32.1 pg (26.0-34.0); MCHC 34.2 g/dL (28.0-37.0); MCV 93.9 fL (80.0-100.0); PLATELET COUNT 193 thou/uL (150-400); RBC 4.15 mil/uL (4.20-5.00); RDW 13.8 % (10.5-14.5); WBC 6.9 thou/uL (4.0-11.0)
[2017-12-23 19:07] LABS: ANION GAP 8 mmol/L (7-16); BUN 19 mg/dL (7-18); CALCIUM 9.7 mg/dL (8.5-10.1); CHLORIDE 104 mmol/L (98-107); CO2 29 mmol/L (21-32); GLUCOSE 122 mg/dL (74-106); POTASSIUM 4.3 mmol/L (3.5-5.1); SODIUM 141 mmol/L (136-145)
[2017-12-23 19:15] LABS: ALBUMIN 3.4 g/dL (3.4-5.0); SGOT 27 U/L (15-37); SGPT 52 U/L (30-65); TOTAL BILIRUBIN 0.2 mg/dL (<0.1-1.0); TOTAL PROTEIN 7.1 g/dL (6.4-8.2); TROPONIN-I <0.06 ng/mL (<0.06)
[2017-12-23 19:49] LABS: ABSOLUTE NEUTROPHILS 4.7 thou/uL (1.4-8.2)
[2017-12-23] MEDS ORDERED: AZITHROMYCIN 2250 MG PO (21:18)
[2017-12-23 21:37] VITALS: BP 119/52
== END 2017-12-23 21:44 | disposition home or self-care (01) ==
LOC: ER 18:16
PROVIDERS: Student in an Organized Health Care Education/Training Program
DX: J18.8 Other pneumonia, unspecified organism (principal); J45.909 Unspecified asthma, uncomplicated; M19.90 Unspecified osteoarthritis, unspecified site; E78.00 Pure hypercholesterolemia, unspecified; Z85.3 Personal history of malignant neoplasm of breast; Z90.49 Acquired absence of other specified parts of digestive tract; Z79.899 Other long term (current) drug therapy; Z88.1 Allergy status to other antibiotic agents; Z88.6 Allergy status to analgesic agent; Z88.8 Allergy status to other drugs, medicaments and biological substances

== ENCOUNTER 2018-02-03 17:09 | Emergency (ER) | payer OTHER, BC ==
[~2018-02-03] VITALS: Ht 160 cm; Wt 78.0 kg
--- NOTE | ~2018-02-03 | EKG ---
[place] [address] [facility] [place] [address] ELECTROCARDIOGRAM REPORT Name: FERNANDO CURRY Room #: [facility] [id number] Admission: 02/03/18 Attend Phys: Discharge: 02/03/18 Date of : 40 Report #: [id number] THIS REPORT FOR: //name// [facility] ED Test Date: 2018-02-03 Test Time: 17:35:08 Pat Name: FERNANDO PATRICIO Department: Room: Gender: F Core Worker: LORI : 1940 Requested By: Ciarra Torres Order Number: [id number] MD: Napoleon Aguirre Measurements Intervals [place] Rate: 73 P: 46 NV: 149 QRS: -19 QRSD: 89 T: 46 QT: 374 QTc: 413 Interpretive Statements Sinus rhythm Poor R wave progression Multiple premature complexes, vent & supraven Compared to ECG 12/23/2017 18:49:58 no significant change was found Electronically Signed On 02-04-2018 16:04:09 COOK RELIEF by Napoleon Aguirre [email or web address] <ELECTRONICALLY SIGNED> By: Napoleon Aguirre MD, [facility] 02/04/18 1604 1735 1735 Napoleon Aguirre MD, [facility] /EPI
[2018-02-03 17:42] LABS: HEMATOCRIT 42.1 % (37.0-47.0); HEMOGLOBIN 14.5 gm/dL (12.0-15.0); MCH 31.8 pg (26.0-34.0); MCHC 34.5 g/dL (28.0-37.0); MCV 92.1 fL (80.0-100.0); PLATELET COUNT 208 thou/uL (150-400); RBC 4.57 mil/uL (4.20-5.00); RDW 13.4 % (10.5-14.5); WBC 6.7 thou/uL (4.0-11.0)
[2018-02-03 17:49] LABS: CALCIUM 10.2 mg/dL (8.5-10.1); CREATININE 0.9 mg/dL (0.6-1.0); POTASSIUM 4.1 mmol/L (3.5-5.1)
[2018-02-03 17:57] LABS: ALBUMIN 3.9 g/dL (3.4-5.0); TOTAL BILIRUBIN 0.2 mg/dL (<0.1-1.0); TOTAL PROTEIN 7.4 g/dL (6.4-8.2)
[2018-02-03 18:43] LABS: ABSOLUTE NEUTROPHILS 3.8 thou/uL (1.4-8.2); ANISOCYTOSIS 1+
[2018-02-03] MEDS ORDERED: TESSALON PERLE100 MG PO (19:01)
[2018-02-03] MEDS ORDERED: PREDNISONE 20 M20 MG PO (19:01)
[2018-02-03 19:24] VITALS: BP 128/71
== END 2018-02-03 19:29 | disposition home or self-care (01) ==
LOC: ER 17:09
PROVIDERS: Physician Assistant
DX: J45.901 Unspecified asthma with (acute) exacerbation (principal); F32.9 Major depressive disorder, single episode, unspecified; F41.9 Anxiety disorder, unspecified; M19.90 Unspecified osteoarthritis, unspecified site; Z88.6 Allergy status to analgesic agent; Z88.2 Allergy status to sulfonamides; Z88.8 Allergy status to other drugs, medicaments and biological substances; Z88.1 Allergy status to other antibiotic agents; Z91.041 Radiographic dye allergy status; Z85.3 Personal history of malignant neoplasm of breast; Z90.11 Acquired absence of right breast and nipple; Z90.49 Acquired absence of other specified parts of digestive tract

== ENCOUNTER → 2018-10-30 | Outpatient (CLI) | payer OTHER, BC ==
[~2018-10-30] MED LIST changes: +TESSALON PERLE100 MG PO
== END ==
LOC: RAD 12:19
DX: R05 Cough (principal); R06.00 Dyspnea, unspecified; M47.814 Spondylosis without myelopathy or radiculopathy, thoracic region

== ENCOUNTER 2018-12-27 17:27 | Inpatient (IN) | payer OTHER, BC ==
[~2018-12-27] VITALS: Ht 180 cm; Wt 84.5 kg
[2018-12-27 17:28] VITALS: BP 139/67
[2018-12-27] MEDS ORDERED: ARICEPT10 M1 PO (17:36)
[2018-12-27] MEDS ORDERED: NAMENDA 10 MG T10 MG PO (17:36)
[2018-12-27] MEDS ORDERED: EZALLOR SPRINKLE5 MG PO (17:36)
[2018-12-27 18:16] LABS: ABSOLUTE NEUTROPHILS 4.5 thou/uL (1.4-8.2); BASOPHILS 0.6 % (0.0-2.0); EOSINOPHILS 13.3 % (0.0-3.0); HEMOGLOBIN 13.8 gm/dL (12.0-15.0); LYMPHOCYTES 19.7 % (24.0-44.0); MCH 31.4 pg (26.0-34.0); MCHC 33.6 g/dL (28.0-37.0); MCV 93.6 fL (80.0-100.0); MONOCYTES 10.5 % (1.0-8.0); PLATELET COUNT 209 thou/uL (150-400); POLYS 55.9 % (36.0-66.0); RBC 4.38 mil/uL (4.20-5.00); RDW 13.9 % (10.5-14.5); WBC 8.1 thou/uL (4.0-11.0)
[2018-12-27 18:27] LABS: ANION GAP 9 mmol/L (7-16); BUN 15 mg/dL (7-18); CALCIUM 9.6 mg/dL (8.5-10.1); CHLORIDE 104 mmol/L (98-107); CO2 26 mmol/L (21-32); CREATININE 0.8 mg/dL (0.6-1.0); GLUCOSE 100 mg/dL (74-106); POTASSIUM 5.1 mmol/L (3.5-5.1); SODIUM 139 mmol/L (136-145)
[2018-12-27 18:36] LABS: ALBUMIN 3.7 g/dL (3.4-5.0); SGOT 56 U/L (15-37); SGPT 45 U/L (30-65); TOTAL BILIRUBIN 0.4 mg/dL (<0.1-1.0); TOTAL PROTEIN 7.2 g/dL (6.4-8.2); TROPONIN-I <0.06 ng/mL (<0.06)
[2018-12-27 19:39] VITALS: BP 139/67
[2018-12-27 21:10] VITALS: BP 120/64
[2018-12-27 21:38] VITALS: BP 140/51
[2018-12-27] MEDS ORDERED: LEXAPRO20 MG PO (23:44)
[2018-12-27] MEDS ORDERED: ROSUVASTATIN CA10 MG PO (23:47)
[2018-12-27] MEDS ORDERED: NAMENDA 5 MG TAB5 M1 PO (23:48)
[2018-12-27] MEDS ORDERED: KLOR-CON M2020 MEQ PO (23:51)
[2018-12-28] MEDS ORDERED: ACCUNEB SO1.25 MG/1 NEB (00:05)
[2018-12-28] MEDS ORDERED: IPRATROPIU0.2 MG/1 M INH (00:11)
[2018-12-28 05:10] VITALS: BP 120/63
[2018-12-28 06:01] LABS: HEMATOCRIT 38.8 % (37.0-47.0); HEMOGLOBIN 12.8 gm/dL (12.0-15.0); MCH 31.1 pg (26.0-34.0); MCHC 32.9 g/dL (28.0-37.0); MCV 94.6 fL (80.0-100.0); RBC 4.1 mil/uL (4.20-5.00); RDW 13.7 % (10.5-14.5); WBC 8.1 thou/uL (4.0-11.0)
[2018-12-28 07:23] VITALS: BP 144/71
--- NOTE | 2018-12-28 09:02 | NUR ---
RECEIVED REPORT FROM DARNELL ACOSTA RN.PATIENT ARRIVED TO ROOM 214 AT 2120.A/O X 3. FORGETFUL.UP WITH ASSIST TO THE BEDSIDE COMMODE.VOIDING ADEQUATE AMOUNT.MONITOR SHOWS SR.ADMISSION DONE.PT HAS CRITICAL LACTIC ACID OF 4.1.ADVANCED REGISTERED NURSE WAS INFORMED.IV FLUIDS CONTINUED.ABX WAS GIVEN X 1.WILL MONITOR AND CONTINUE POC.
[2018-12-28 11:41] VITALS: BP 130/68
--- NOTE | 2018-12-28 11:49 | EKG ---
[place] [address] [facility] [facility] [place] [address] ELECTROCARDIOGRAM REPORT Name: FERNANDO CURRY Room #: 214-P ADM IN M.R.#: [id number] Admission: 12/27/18 Attend Phys: Willy Starks MD Discharge: Date of : 40 Report #: [id number] THIS REPORT FOR: //name// [facility] ED Test Date: 2018-12-27 Test Time: 17:42:01 Pat Name: FERNANDO PATRICIO Department: Room: 214 Gender: F House Designer: : 1940 Requested By: Ten Blackwell Order Number: [id number] MD: Napoleon Aguirre Measurements Intervals [place] Rate: 74 P: 31 WI: 161 QRS: 15 QRSD: 89 T: -13 QT: 419 QTc: 465 Interpretive Statements Sinus rhythm Nonspecific ST and T wave abnormality Compared to ECG 02/03/2018 17:35:08 Nonspecific change in the ST and T-wave segments Electronically Signed On 12-28-2018 11:49:47 CDT by Napoleon Aguirre [email or web address] <ELECTRONICALLY SIGNED> By: Napoelon Aguirre MD, [facility] 12/28/18 1149 1742 1742 Napoleon Aguirre MD, [facility] /EPI
--- NOTE | 2018-12-28 14:53 | NUR ---
ASSESSMENT CHARTED. PT ALERT AND ORIENTED. VSS. DENIES HAVING PAIN OR DISCOMFORT. RT TREATMENT PROVIDED ORDERED. NO RESPIRATORY OR CARDIAC DISTRESS NOTED. WILL CONTINUE TO MONITOR.
[2018-12-28 16:07] VITALS: BP 139/67
[2018-12-28 20:15] VITALS: BP 140/75
--- NOTE | 2018-12-29 04:52 | NUR ---
ASSUMED PT CARE AT 1900. VSS. PT A&0X4. PT IS STILL GREIVING OVER LOST SON. PT COMPLAINED OF HEARTBURN, YOGHURT AND MILK GIVEN, PT REPORTED SOME RELIEF. PT IS STABLE, REASTED WELL ALL NIGHT, SHE IS STABLE ON HER FEET TOO. NO COMPLAINTS OF PAIN OR DISCOMFORT, WILL CONTINUE TO MONITOR PER POC.
[2018-12-29 05:31] VITALS: BP 137/60
[2018-12-29 07:45] VITALS: BP 142/67
[2018-12-29 12:00] VITALS: BP 156/72
[2018-12-29] MEDS ORDERED: CEFUROXIME500 MG PO (12:37)
[2018-12-29] MEDS ORDERED: ACETAMINOPHEN325 M1 PO (12:37)
[2018-12-29] MEDS ORDERED: IPRAT-ALBUT 0.5-3 ML INH (12:37)
[2018-12-29] MEDS ORDERED: RAYOS5 MG PO (12:37)
[2018-12-29] MEDS ORDERED: MUCINEX600 MG PO (12:37)
[2018-12-29] MEDS ORDERED: ZITHROMAX500 MG PO (12:37)
[2018-12-29 13:16] VITALS: BP 156/72
[2018-12-29 13:25] VITALS: BP 156/72
--- NOTE | 2018-12-29 13:26 | NUR ---
Met with patient, plan dc today. Patient resides at home with spouse. She uses a cane to ambulate if needed. She drives short distances in her area. Discussed HH and she has used [facility] in past and prefers to use [facility]. Plan home today with HH care. referral to [facility] if can accept. Verified address.
[2018-12-29 14:44] VITALS: BP 156/72
--- NOTE | 2018-12-29 14:47 | NUR ---
FAXED REFERRAL TO [facility] SPOKE WITH CARLY IN INTAKE AND SHE RECEIVED REFERRAL AND CAN ACCEPT. FAXED DC ORDERS/SUMMARY TO [facility] AND RECEIVED CONFIRMATION THEY WILL NOTIFY PT TIME OF VISITS.
--- NOTE | 2018-12-29 14:47 | NUR ---
ASSESSMENT CHARTED. PT ALERT AND ORIENTED. VSS. DENIED HAVING PAIN OR DISCOMFORT. SEEN BY DR. GRIJALVA AND DR. MORGAN. ORDERS GIVEN TO DISCHARGE PT TO HOME. DISCHARGE INSTRUCTIONS GIVEN TO PT AND THE . BOTH VERBERLISED UNDERSTANDING.
--- NOTE | 2018-12-29 15:34 | NUR ---
ORDERS RECEIVED FOR PT EVAL AND TREAT. Pt LIVES WITH IN HOME WITH 2 KEN AT FRONT DOOR OR 20 STEPS FROM GARAGE WITH HR THAT Pt DOESN'T NEED TO USE. USES CANE NEEDED. INDEP WITH ADLs. DRIVES SHORT DISTANCES. TAKES THEIR DOG ON SHORT WALKS; STATED SHE HAS TO STOP AT TIMES D/T SOA. USES INHALER AND NEBULIZER AT HOME WHICH STATED HE ENCOURAGES HER TO USE EVEN WHEN SHE DOESN'T WANT TO. DECLINED ANY RECENT FALLS. Pt DECLINING PT SERVICES AT THIS TIME STATING SHE WAS READY TO GO HOME AND DID NOT FEEL SHE NEED PHYSICAL THERAPY. ACUTE PT TO SIGN OFF. IF Pt HAS A CHANGE IN FUNCTIONAL MOBILITY, BALANCE, ENDURANCE, OR STRENGTH FROM BASELINE, PLEASE CONSIDER RE-CONSULTING PT.
== END 2018-12-29 15:00 | disposition home health service (06) | DRG 189 ==
LOC: ER 17:27 → EROBS 19:22 → 2N 19:22 → ENTRNSPT 12-29 14:32 → EDTRNSPTSTS 12-29 14:34 → 2N 12-29 15:00
PROVIDERS: Nurse Practitioner Family; Physician Assistant; ADMIT Hospitalist
DX: J96.01 Acute respiratory failure with hypoxia (principal); J45.901 Unspecified asthma with (acute) exacerbation; J44.1 Chronic obstructive pulmonary disease with (acute) exacerbation; M35.1 Other overlap syndromes; E46 Unspecified protein-calorie malnutrition; M19.90 Unspecified osteoarthritis, unspecified site; F32.9 Major depressive disorder, single episode, unspecified; F41.9 Anxiety disorder, unspecified; E78.5 Hyperlipidemia, unspecified; E66.9 Obesity, unspecified; D72.1 Eosinophilia; J32.9 Chronic sinusitis, unspecified; I10 Essential (primary) hypertension; F03.90 Unspecified dementia, unspecified severity, without behavioral disturbance, psychotic disturbance, mood disturbance, and anxiety; Z98.42 Cataract extraction status, left eye; Z98.41 Cataract extraction status, right eye; Z90.49 Acquired absence of other specified parts of digestive tract; Z85.3 Personal history of malignant neoplasm of breast; Z92.21 Personal history of antineoplastic chemotherapy; Z92.3 Personal history of irradiation; Z79.899 Other long term (current) drug therapy; Z88.2 Allergy status to sulfonamides; Z88.6 Allergy status to analgesic agent; Z88.8 Allergy status to other drugs, medicaments and biological substances; Z80.1 Family history of malignant neoplasm of trachea, bronchus and lung; Z68.26 Body mass index [BMI] 26.0-26.9, adult
CPT/HCPCS: 10081; 10194

== ENCOUNTER 2019-01-18 00:13 | Emergency (ER) | payer OTHER, BC ==
[~2019-01-18] VITALS: Ht 160 cm; Wt 77.1 kg
[~2019-01-18 00:13] MED LIST changes: +ACCUNEB SO1.25 MG/1 NEB; +ACETAMINOPHEN325 M1 PO; +CEFUROXIME500 MG PO; +EZALLOR SPRINKLE5 MG PO; +IPRAT-ALBUT 0.5-3 ML INH; +IPRATROPIU0.2 MG/1 M INH; +MUCINEX600 MG PO; +NAMENDA 10 MG T10 MG PO; +NAMENDA 5 MG TAB5 M1 PO; +RAYOS5 MG PO; +ROSUVASTATIN CA10 MG PO; +ZITHROMAX500 MG PO
[2019-01-18] MEDS ORDERED: PROTONIX40 M2 PO (01:01)
[2019-01-18] MEDS ORDERED: LORATIDINE 10 M10 M1 PO (01:02)
[2019-01-18 01:05] LABS: HEMATOCRIT 41.6 % (37.0-47.0); HEMOGLOBIN 13.8 gm/dL (12.0-15.0); MCH 31.1 pg (26.0-34.0); MCHC 33.1 g/dL (28.0-37.0); PLATELET COUNT 220 thou/uL (150-400); RBC 4.43 mil/uL (4.20-5.00); RDW 13.5 % (10.5-14.5); WBC 9.1 thou/uL (4.0-11.0)
[2019-01-18 01:20] LABS: ANION GAP 9 mmol/L (7-16); BUN 17 mg/dL (7-18); CHLORIDE 99 mmol/L (98-107); CO2 30 mmol/L (21-32); GLUCOSE 104 mg/dL (74-106); SODIUM 138 mmol/L (136-145)
[2019-01-18 01:30] LABS: SGOT 24 U/L (15-37); SGPT 39 U/L (30-65); TOTAL BILIRUBIN 0.5 mg/dL (<0.1-1.0); TOTAL PROTEIN 7.8 g/dL (6.4-8.2); TROPONIN-I <0.06 ng/mL (<0.06)
[2019-01-18 02:39] LABS: ABSOLUTE NEUTROPHILS 5.8 thou/uL (1.4-8.2)
[2019-01-18] MEDS ORDERED: VENTOLIN HFA 1818 GM INH (02:53)
[2019-01-18] MEDS ORDERED: PREDNISONE 20 M20 M1 PO (02:53)
[2019-01-18 04:00] VITALS: BP 109/62
--- NOTE | 2019-01-18 13:21 | EKG ---
[address] [address] ELECTROCARDIOGRAM REPORT Name: FERNANDO CURRY [facility] [id number] Admission: 01/18/19 Attend Phys: Discharge: 01/18/19 Date of : 40 Report #: [id number] THIS REPORT FOR: //name// [facility] ED Test Date: 2019-01-18 Test Time: 00:14:55 Pat Name: FERNANDO PATRICIO Department: Room: Gender: F Manager Statistical Programming: ELVIN : 1940 Requested By: Maureen Slade Order Number: [id number] MD: Napoleon Aguirre Measurements Intervals [place] Rate: 80 P: 22 LA: 165 QRS: -30 QRSD: 94 T: 61 QT: 407 QTc: 470 Interpretive Statements Sinus rhythm Left axis deviation Compared to ECG 12/27/2018 17:42:01 ST (T wave) deviation no longer present Electronically Signed On 01-18-2019 13:21:36 ALARM OPERATOR by Napoleon Aguirre [email or web address] <ELECTRONICALLY SIGNED> By: Napoleon Aguirre MD, [facility] 01/18/19 1321 001 Napoleon Aguirre MD, [facility] /EPI
== END 2019-01-18 04:00 | disposition home or self-care (01) ==
LOC: ER 00:13
PROVIDERS: Emergency Medicine Emergency Medical Services
DX: J45.901 Unspecified asthma with (acute) exacerbation (principal); M19.90 Unspecified osteoarthritis, unspecified site; F32.9 Major depressive disorder, single episode, unspecified; Z88.6 Allergy status to analgesic agent; Z88.2 Allergy status to sulfonamides; Z88.8 Allergy status to other drugs, medicaments and biological substances

== ENCOUNTER 2020-01-03 23:28 | Inpatient (IN) | payer OTHER, BC ==
[~2020-01-03] VITALS: Ht 152.4 cm; Wt 82.1 kg
[~2020-01-03 23:28] MED LIST changes: +LORATIDINE 10 M10 M1 PO; +PREDNISONE 20 M20 M1 PO; +PROTONIX40 M2 PO
[2020-01-03 23:30] VITALS: BP 170/88
[2020-01-04] VITALS (7 sets, daily range): BP systolic 105–154; BP diastolic 57–73
[2020-01-04 00:51] LABS: BASOPHILS 0.6 % (0.0-2.0); EOSINOPHILS 15.3 % (0.0-3.0); HEMATOCRIT 42.6 % (37.0-47.0); HEMOGLOBIN 14.1 gm/dL (12.0-15.0); LYMPHOCYTES 13.5 % (24.0-44.0); MCHC 33.3 g/dL (28.0-37.0); MCV 93.2 fL (80.0-100.0); MONOCYTES 8.5 % (1.0-8.0); PLATELET COUNT 218 thou/uL (150-400); POLYS 62.1 % (36.0-66.0); RBC 4.57 mil/uL (4.20-5.00); RDW 14.3 % (10.5-14.5)
[2020-01-04 00:57] LABS: ANION GAP 11 mmol/L (7-16); BUN 13 mg/dL (7-18); CALCIUM 9.6 mg/dL (8.5-10.1); CHLORIDE 104 mmol/L (98-107); CO2 29 mmol/L (21-32); GLUCOSE 102 mg/dL (74-106); POTASSIUM 3.7 mmol/L (3.5-5.1); SODIUM 144 mmol/L (136-145)
[2020-01-04 01:05] LABS: TROPONIN-I <0.06 ng/mL (<0.06)
--- NOTE | 2020-01-04 02:08 | NUR ---
SPOKE TO PT'S , PETROS, USING CELLPHONE TO UPDATE HIM ON PT STATUS AND INFORM HIM PT WILL BE STAYING OVERNIGHT D/T 02 SATS; INFORMED THIS RN PT HAS NOT BEEN TAKING HER DUO NEB TX AT HOME APPROPRIATELY R/T HER DEMENTIA
--- NOTE | 2020-01-04 08:22 | NUR ---
ADMIT PT ADMITTED FROM ED TO ROOM 360 FOR ASTHMA ATTACK AND /O COVID. PT VEY DROWSY AFTER ATIVAN GIVEN IN ED, BUT ANSWERED ALL ADMISSION QUESTIONS WITHOUT DIFFICULTY.
--- NOTE | 2020-01-04 12:28 | EKG ---
[facility] [place] [address] ELECTROCARDIOGRAM REPORT Name: FERNANDO CURRY Room #: 360-P ADM IN M.R.#: [id number] Admission: 01/04/20 Attend Phys: Srinivasan Loja MD Discharge: Date of : 40 Report #: [id number] THIS REPORT FOR: cc: Guy Campa MD, Bernard O. MD Santiago, Patrick MD [facility] ~ THIS REPORT FOR: //name// [facility] ED Test Date: 2020-01-04 Test Time: 00:34:29 Pat Name: FERNANDO AMBROCIOCATHYORLANDO Department: Room: 360 Gender: F Housekeeping Coordinator: esheets : 1940 Requested By: Victoriano Latham Order Number: [id number] MD: Ottoniel Madrid Measurements Intervals [place] Rate: 73 P: 40 NM: 165 QRS: -1 QRSD: 87 T: 44 QT: 434 QTc: 479 Interpretive Statements Sinus rhythm Compared to ECG 01/18/2019 00:14:55 Left-axis deviation no longer present Electronically Signed On 01-04-2020 12:28:39 AGRICULTURAL SCIENTIST by Ottoniel Madrid [email or web address] <ELECTRONICALLY SIGNED> By: Ottoniel Madrid MD, [facility] 01/04/20 1228 0034 0034 Ottoniel Madrid MD, [facility] /EPI
--- NOTE | 2020-01-04 15:42 | NUR ---
INITIAL ASSESSMENT: Consult received for discharge planning. TAMIE reviewed chart and spoke with nursing and attending physician. Pt was admitted from home due to exacerbation of asthma. Pt placed in Enhanced Isolation to r/o COVID-19. Pt's test is negative. Enhanced Isolation precautions discontinued. Pt is on 2L of O2 and IV steroids. Pulm consulted. TAMIE spoke with pt via phone. Introduced role of SW. Pt with hx of dementia and able to answer basic questions appropriately. Pt stating that she needs a new nebulizer when she goes home. TAMIE spoke with pt's , Dane, via phone. Introduced role of SW. Pt and spouse reside in their home. No steps inside the home. 12 steps to go to the basement. Pt has a cane and walker at home. [facility] used [facility] the past. No hx of post-acute placement. Pt's PCP is Dr. Guy Campa. Pt's spouse confirms need for a new nebulizer. Options for DME companies provided. No preference voiced. TAMIE faxed face sheet to [facility] to check insurance coverage for a new nebulizer. Pt's is agreeable with referral to [facility] if needed at time of discharge. PT/OT evals are pending. TAMIE is follwoing to assist as needed with discharge planning.
--- NOTE | 2020-01-04 18:09 | NUR ---
ASSUMED PATIENT CARE THIS AM AT APPROXIMATELY 0700. PATIENT IS AWAKE ALERT ORIENTED. ASSESSMENTS AND MEDICATIONS ORDERED. VSS. NO ACUTE DISTRESS NOTED THIS SHIFT. PATIENT REQUIRED 2LNC THIS AM AND NOW SATS ARE STABLE ON ROOM AIR. COVID TEST NEGATIVE TODAY AND PATIENT MADE AWARE. TRANSFER ORDER TO TRANSFER OFF UNIT TO .
[2020-01-05] VITALS (7 sets, daily range): BP systolic 123–130; BP diastolic 61–66
--- NOTE | 2020-01-05 04:25 | NUR ---
assumed pt care at the change of shift, pt is awake, alert and orientedx3, anxious, laying down in bed, sr on the monitor, denies pain or sob, c/o productive cough, wheezes noted upon assessment, meds given as per may, iv started to the left wrist, no redness noted, assessments as charted, edi specialist notified about pt anxiety, one time ativan given as per orders, sleeping at this time, no further needs, will continue to monitor
[2020-01-05 04:47] LABS: MCH 30.7 pg (26.0-34.0); MCHC 32.6 g/dL (28.0-37.0); MCV 94.3 fL (80.0-100.0); RBC 4.24 mil/uL (4.20-5.00); RDW 14.4 % (10.5-14.5); WBC 16.1 thou/uL (4.0-11.0)
[2020-01-05 04:59] LABS: CALCIUM 9.7 mg/dL (8.5-10.1); CREATININE 1.1 mg/dL (0.6-1.0); POTASSIUM 4.2 mmol/L (3.5-5.1)
[2020-01-05] MEDS ORDERED: DOXYCYCLINE HYC50 MG PO (11:05)
[2020-01-05] MEDS ORDERED: PREDNISONE 10 M10 MG PO (11:08)
--- NOTE | 2020-01-05 13:20 | NUR ---
assessment as charted - meds as per may - no co's of pain or nausea. stephen diet and fluids. pt seen by phys and occ therapy this am. pt stated pt should be stand by assist. pt home this afternoon - instruction re home meds/ care and follow up given to patient and some information given to when patient was taken out to care. pt left the unit via wheel chair - home via pvt vehicle- no co's at time of d/c.
--- NOTE | 2020-01-05 14:42 | NUR ---
CARE TEAM INDICATED THAT PT IS MEDICALLY STABLE TO DC HOME THIS DAY. REFERRAL SENT TO [facility] . THEY ARE ABLE TO ACCEPT PT FOR SERIVCES UPON DC. PT AND SPOUSE AWARE AND AGREEABLE. CM FAXED ORDER FOR NEW NEBULIZER TO [facility]. THEY HAD INDICATED THEY ARE ABLE TO PROVIDE ONE AND THAT THEY WILL BELIVER IT TO THE HOME. NO OTHER CM INTERVENTION INDICATED. CASE CLOSED.
== END 2020-01-05 13:20 | disposition home health service (06) | DRG 189 ==
LOC: ER 23:28 → EROBS 01-04 02:09 → 3W 01-04 02:09 → 2N 01-04 18:30
PROVIDERS: Emergency Medicine; Nurse Practitioner Family; ADMIT Internal Medicine; ATTEND Internal Medicine
DX: J96.01 Acute respiratory failure with hypoxia (principal); J44.1 Chronic obstructive pulmonary disease with (acute) exacerbation; J45.901 Unspecified asthma with (acute) exacerbation; F32.9 Major depressive disorder, single episode, unspecified; F41.9 Anxiety disorder, unspecified; M19.90 Unspecified osteoarthritis, unspecified site; F03.90 Unspecified dementia, unspecified severity, without behavioral disturbance, psychotic disturbance, mood disturbance, and anxiety; E78.5 Hyperlipidemia, unspecified; Z20.828 Contact with and (suspected) exposure to other viral communicable diseases; Z96.1 Presence of intraocular lens; Z88.1 Allergy status to other antibiotic agents; Z88.2 Allergy status to sulfonamides; Z79.899 Other long term (current) drug therapy; Z92.3 Personal history of irradiation; Z92.21 Personal history of antineoplastic chemotherapy; Z98.42 Cataract extraction status, left eye; Z90.49 Acquired absence of other specified parts of digestive tract; Z98.41 Cataract extraction status, right eye; Z88.8 Allergy status to other drugs, medicaments and biological substances; Z85.3 Personal history of malignant neoplasm of breast
CPT/HCPCS: 10081